=== PATIENT | male | born 1970 | race Caucasian/White ===

== ENCOUNTER 2016-09-27 15:30 | Emergency (ER) | payer MEDICARE, MEDICAID ==
[~2016-09-27] VITALS: Ht 182.9 cm; Wt 117.9 kg
[2016-09-27 15:30] VITALS: BP 148/92
[2016-09-27] MEDS ORDERED: IBUPROFEN 400 MG TABLET PO ONE (16:00)
[2016-09-27] MEDS ORDERED: IBUPROFEN 400 MG TABLET ONE (16:12)
--- NOTE | 2016-09-27 16:35 | NUR ---
RESTAUR[employer] PERSON AT BEDSIDE
--- NOTE | 2016-09-27 17:29 | NUR ---
Patient discharged to home in stable condition. Written and verbal after care instructions given. Patient verbalizes understanding of instruction.
== END 2016-09-27 17:49 | disposition home or self-care (01) ==
LOC: ER 15:38
DX: S40.012A Contusion of left shoulder, initial encounter (principal); F32.9 Major depressive disorder, single episode, unspecified; Z79.82 Long term (current) use of aspirin; V40.6XXA Car passenger injured in collision with pedestrian or animal in traffic accident, initial encounter; Y93.89 Activity, other specified; Y92.89 Other specified places as the place of occurrence of the external cause; Y99.9 Unspecified external cause status
CPT/HCPCS: 73030-TC